=== PATIENT | female | born 1970 | race Caucasian/White ===

== ENCOUNTER 2016-12-09 14:49 | Inpatient (IN) | payer BC ==
--- NOTE | 2016-12-09 14:59 | ER Document Report ---
Addendum entered and electronically signed by KAI QUIJANO NP 12/09/16 15:02 : ED Medical Screen (RME) - General Chief Complaint: Leg Pain Stated Complaint: RIGHT LEG/FOOT PAIN Mode of Arrival: Wheelchair Information source: Patient Notes: I have greeted and performed a rapid initial assessment of this patient. A comprehensive ED assessment and evaluation of the patient, analysis of test results and completion of the medical decision making process will be conducted by additional ED providers. TRAVEL OUTSIDE OF THE [place] IN LAST 30 DAYS: No COUNTRY TRAVELED TO/FROM: [place] - Related Data Allergies/Adverse Reactions: No Known Allergies Allergy (Verified 12/09/16 15:00) Original Note: ED Medical Screen (RME) - General Stated Complaint: RIGHT LEG/FOOT PAIN Notes: pt presents with c/o right foot/lower leg pain. Reports sent over by her pcp. Reports pain and erythema started one week ago, denies injury. has been placed on keflex by [facility] last for cellullitis. TRAVEL OUTSIDE OF THE [place] IN LAST 30 DAYS: No COUNTRY TRAVELED TO/FROM: [place] - Related Data Allergies/Adverse Reactions: No Known Allergies Allergy (Verified 09/19/15 00:55) Past Medical History - Past Medical History Cardiac Medical History: Reports: Hx Hypertension - on meds Denies: Hx Coronary Artery Disease, Hx Heart Attack Pulmonary Medical History: Denies: Hx Asthma, Hx Bronchitis, Hx COPD, Hx Pneumonia Neurological Medical History: Denies: Hx Cerebrovascular Accident, Hx Seizures Endocrine Medical History: Reports: Hx Diabetes Mellitus Type 1, Hx Diabetes Mellitus Type 2 Musculoskeltal Medical History: Denies Hx Arthritis Psychiatric Medical History: Reports: Hx Depression - anxiety Past Surgical History: Reports: Hx Section - x3, Hx Cholecystectomy, Hx Tubal Ligation - Immunizations Hx Diphtheria, Pertussis, Tetanus Vaccination: Yes
[2016-12-09 15:37] LABS: ABSOLUTE BASOPHILS # (AUTO) 0.1 10^3/uL (0.0-0.2); ABSOLUTE EOSINOPHILS # (AUTO) 0.5 10^3/uL (0.0-0.6); ABSOLUTE LYMPHOCYTES (AUTO) 2.7 10^3/uL (0.5-4.7); ABSOLUTE MONOCYTES (AUTO) 0.6 10^3/uL (0.1-1.4); ABSOLUTE NEUT (AUTO) 7.3 10^3/uL (1.7-8.2); BASOPHILS % (AUTO) 0.6 % (0-2); EOSINOPHILS % (AUTO) 4.8 % (0-6); HEMATOCRIT 44.2 % (36.0-47.0); HEMOGLOBIN 13.6 g/dL (12.0-15.5); HGB HCT DIFFERENCE -3.4; LYMPHOCYTES % (AUTO) 24.2 % (13-45); MEAN CORPUSCULAR HEMOGLOBIN 26.3 pg (27.0-33.4); MEAN CORPUSCULAR HGB CONC 30.8 g/dL (32.0-36.0); MEAN CORPUSCULAR VOLUME 85 fl (80-97); MONOCYTES % (AUTO) 5.3 % (3-13); RED BLOOD COUNT 5.18 10^6/uL (3.72-5.28); RED CELL DISTRIBUTION WIDTH 16.9 % (11.5-14.0); SEGMENTED NEUTROPHILS % (AUTO) 65.1 % (42-78); WHITE BLOOD COUNT 11.2 10^3/uL (4.0-10.5)
[2016-12-09 15:59] LABS: ALANINE AMINOTRANSFERASE 28 U/L (9-52); ALBUMIN 4.3 g/dL (3.5-5.0); ALKALINE PHOSPHATASE 76 U/L (38-126); ANION GAP 16 (5-19); ASPARTATE AMINO TRANSFERASE 22 U/L (14-36); BILIRUBIN,TOTAL 0.4 mg/dL (0.2-1.3); BLOOD UREA NITROGEN 12 mg/dL (7-20); CALCIUM 9.8 mg/dL (8.4-10.2); CARBON DIOXIDE 24 mmol/L (22-30); CHLORIDE 100 mmol/L (98-107); CREATININE RESULT 0.72 mg/dL (0.52-1.25); GLUCOSE 181 mg/dL (75-110); POTASSIUM 5.4 mmol/L (3.6-5.0); SODIUM 139.5 mmol/L (137-145); TOTAL PROTEIN 7.5 g/dL (6.3-8.2)
[2016-12-09] MEDS ORDERED: CLINDAMYCIN 600 MG/D5W RTU 50 ML IV ONE (16:40)
--- NOTE | 2016-12-09 16:46 | ER Document Report ---
ED Extremity Problem, Lower - General Chief Complaint: Leg Pain Stated Complaint: RIGHT LEG/FOOT PAIN Mode of Arrival: Wheelchair Information source: Patient, Relative TRAVEL OUTSIDE OF THE [place] IN LAST 30 DAYS: No COUNTRY TRAVELED TO/FROM: [facility] Patient complains to provider of: Pain Location: Ankle, Leg Occurred: Last week Onset/Duration: Gradual Quality of pain: Burning Severity: Moderate Context: Other - RECALLS NO INJURY, NO OPEN WOUNDS Recent injury: No Associated symptoms: Chills, Other - AMBULATION PAINFUL. denies: Fever, Sweaty , Unable to bear weight Exacerbated by: Movement, Walking Relieved by: Rest Notes: Patient was begun on cephalexin 8 days ago by her primary care provider. The redness in the leg improved, there was more modest improvement in the amount of pain. She returned to work yesterday, saw her primary care provider today with complaints of increasing pain. PCP referred her to the emergency department for further evaluation. - Related Data Allergies/Adverse Reactions: No Known Allergies Allergy (Verified 12/09/16 15:00) Past Medical History - General Information source: Patient - Social History Smoking Status: Current Every Day Smoker Chew tobacco use (# tins/day): No Frequency of alcohol use: Rare Drug Abuse: None Lives with: Spouse/Significant other Family History: Reviewed & Not Pertinent Patient has suicidal ideation: No Patient has homicidal ideation: No - Past Medical History Cardiac Medical History: Reports: Hx Hypertension - on meds Denies: Hx Coronary Artery Disease, Hx Heart Attack Pulmonary Medical History: Denies: Hx Asthma, Hx Bronchitis, Hx COPD, Hx Pneumonia Neurological Medical History: Denies: Hx Cerebrovascular Accident, Hx Seizures Endocrine Medical History: Reports: Hx Diabetes Mellitus Type 1, Hx Diabetes Mellitus Type 2 Renal/ Medical History: Denies: Hx Peritoneal Dialysis Malignancy Medical History: Reports: None GI Medical History: Reports: None Musculoskeltal Medical History: Reports None, Denies Hx Arthritis Psychiatric Medical History: Reports: Hx Depression - anxiety Past Surgical History: Reports: Hx Section - x3, Hx Cholecystectomy, Hx Tubal Ligation - Immunizations Hx Diphtheria, Pertussis, Tetanus Vaccination: Yes Review of Systems - Review of Systems Constitutional: See HPI EENT: No symptoms reported Cardiovascular: No symptoms reported Respiratory: No symptoms reported Gastrointestinal: No symptoms reported Genitourinary: No symptoms reported Female Genitourinary: denies: Musculoskeletal: No symptoms reported Skin: See HPI Neurological/Psychological: No symptoms reported Physical Exam - Vital signs Interpretation: Hypertensive - General General appearance: Appears well, Alert In distress: None - HEENT Head: Normocephalic Eyes: Normal Conjunctiva: Normal Ears: Normal Nasal: Normal Mouth/Lips: Normal Mucous membranes: Normal Neck: Normal - Respiratory Respiratory status: No respiratory distress - Cardiovascular Rhythm: Regular Pulses: Normal: Dorsalis pedis Normal capillary refill: Yes - Abdominal Inspection: Normal Distension: No distension - Extremities General upper extremity: Normal inspection General lower extremity: No: Normal inspection - R. ANKLE (SEE BELOW) Calf: Tender - MODERATE, DISTAL RIGHT PRE-TIBIAL. MINIMAL SWELLING, NO CREPITANCE Ankle: Tender - OVER JOINT SPACE, Other - NO EFFUSION Foot: Nontender - Neurological Neuro grossly intact: Yes Cognition: Normal Orientation: AAOx4 - Psychological Associated symptoms: Normal affect, Normal mood - Skin Skin Temperature: Warm Skin Moisture: Dry Skin Color: Normal Skin Turgor: Elastic Skin irregularity: Erythema - MILD, RIGHT DISTAL PRE-TIBIAL Course - Re-evaluation Re-evalutation: 12/09/16 19:12 Patient reports minimal improvement in symptoms. Still intense pain with any movement of the ankle or with attempted ambulation. - Laboratory Result Diagrams: 12/09/16 15:10 12/09/16 15:10 Laboratory results interpreted by me: 12/09/16 12/09/16 15:10 15:10 WBC 11.2 H MCH 26.3 L MCHC 30.8 L RDW 16.9 H Potassium 5.4 H Glucose 181 H - Consults DR. NESS Time consulted: 20:02 Consulted provider: will come to ER Discharge - Discharge Clinical Impression: Cellulitis of right lower extremity Controlled type 2 diabetes mellitus Qualifiers: Diabetes mellitus complication status: without complication Diabetes mellitus custodial insulin use: without dedicated intermodal truck driver use Qualified Code(s): E11.9 - Type 2 diabetes mellitus without complications Condition: Good Disposition: ADMITTED INPATIENT Admitting Provider: Hospitalist Unit Admitted: Telemetry
[2016-12-09] MEDS ORDERED: ONDANSETRON HCL INJ/PF 4 MG/2 ML SDV IV ONE (18:59)
[2016-12-09] MEDS ORDERED: HYDROMORPHONE HCL INJ/PF 2 MG/ML AMPULE IV ONE (18:59)
[2016-12-09] MEDS ORDERED: DEXTROSE 50%-WATER 25 GM/50 ML DISP.SYRIN IV PRN ×2 (21:50)
[2016-12-09] MEDS ORDERED: DEXTROSE 40% GEL 15 GM TUBE PO PRN ×2 (21:50)
[2016-12-09] MEDS ORDERED: GLUCAGON,HUMAN RECOMB 1 MG INJ IM PRN (21:50)
[2016-12-09] MEDS ORDERED: NICOTINE 14 MG/24 HR PATCH.TD24 TD PRN (21:52)
[2016-12-09] MEDS ORDERED: MAG HYDROX/AL HYDROX/SIMETH SUSP 30 ML UDCUP PO PRN (21:54)
[2016-12-09] MEDS ORDERED: MAGNESIUM HYDROXIDE SUSP 30 ML UDCUP PO PRN (21:54)
[2016-12-09] MEDS ORDERED: CEFAZOLIN 1 GM/D5W RTU 1 GM/50 ML RTUPB IV ONE (22:00)
[2016-12-09] MEDS ORDERED: (PENDING PHARMACY ID) (Lisinopril [Prinivil] 20 MG) PO SCH (22:00)
--- NOTE | 2016-12-09 22:31 | PDOC H&P ---
History of Present Illness Admission Date/PCP: 12/09/16 20:24 JOEL WOODY PA-C, [facility] Patient complains of: right leg infection/pain History of Present Illness: DAV RODRIGES is a 46 year old obese female with underlying type II diabetes mellitus, chronic tobacco dependency, hypertension, and hyperlipidemia , with patient refusing to take pravastatin, who presents to the emergency room for evaluation of above complaints. Patient has been discussed with emergency room physician who evaluated the patient. Patient describes the onset of a red tender area in the lower medial aspect of her right lower leg approximately 2 weeks ago. Has been on Keflex 500 4 times a day for the past 8 days. The redness has decreased a good bit, but the pain actually has slowly worsened, in particular over the last 24 hours or so. Combination throbbing and sharp pain, worse with ambulation or contact with the area Positive shaking chills. No nausea vomiting, or diarrhea. No prior such episodes. Denies any trauma to this site. No discharge. No history of MRSA infection. Was seen in her primary care provider's office today and instructed to come to the emergency room for further evaluation and treatment. Laboratory results are listed in Screenie and are reviewed. X-ray summary results are listed below, with full report(s) reviewed. . Social history/personal habits: . Has children. Works in medical billing. Half-pack of cigarettes per day. Rare alcohol. No illicit drug use. Allergies/adverse reactions NKDA. Home medications are reviewed by discussion with patient and are to be reconciled by nursing staff in [facility]. Home medications initially autopopulated into [facility] may not accurately reflect patient's true medications, dosages, and/or frequencies. Refuses to take pravastatin. Normally takes doxycycline 100 mg a day year round for rosacea; this has been on hold since she's been taking the Keflex. REVIEW OF SYSTEMS: Constitutional: See history and present illness. Eyes: Wears glasses. ENT: No swallowing problems or complaints. No hearing problems or complaints. Pulmonary: No current complaints. Cardiovascular: No current complaints, including chest pain. Gastrointestinal: No current complaints, including nausea or vomiting. Skin: See history and present illness. Hematologic: No unusual easy bruising or bleeding. Neurologic: No current complaints, including numbness or tingling. Musculoskeletal: No current complaints, including painful joints. Psychiatric: No current complaints, including anxiety or depression. Endocrine: No current complaints, including polyuria. Genitourinary: No current complaints, including dysuria. PHYSICAL EXAMINATION: 5 feet 4 inches tall. 108.9 kg. BMI 41.2 kg/m. Blood pressure 132/84. Pulse 67 and regular. 97% saturation on room air. Respirations are 16 and unlabored. Temperature is not recorded on the chart. Morbidly obese otherwise well-developed female appearing approximately her stated age. Pleasant awake alert and cooperative. No obvious distress other than perhaps mildly anxious. Female emergency room nurse Taya is present. Skin is warm and dry. No grossly obvious evidence of rash in areas of skin examined. No subcutaneous nodules palpated. See comments under "extremities" below. ENT: Hearing grossly normal to normal conversation. Tongue midline on protrusion pink and slightly tacky Eyes: No scleral icterus. Pupils equal and reactive to light at 4 mm. [place] conjunctivae. Neck is supple and nontender to gentle active range of motion and palpation. Midline trachea. No palpable thyroid nodule mass enlargement or tenderness. Lymphatic: No palpable cervical or clavicular nodes. Neck and lymphatic exams limited by patient body habitus. Psychiatric: Reasonable insight into acute and chronic medical issues. Oriented to time location and why here. Lungs: Auscultation reveals clear and equal breath sounds bilaterally. No use of accessory respiratory muscles. Cardiovascular: Heart regular rate and rhythm, without gallop murmur or rub. No carotid or abdominal aortic bruits. No ankle or pedal edema. Faintly palpable dorsalis pedis pulses. Abdomen:soft, obese, nontender with positive bowel sounds. Unable to adequately evaluate abdomen for masses or organomegaly due to Body habitus Extremities: Feet are warm and dry. No calf tenderness to compression. No grossly obvious visual evidence of calf swelling. Gentle manipulation of lower extremities fails to reveal any obvious evidence of injury or instability to knees hips or ankles. Examination the right lower extremity reveals an area approximately 12 x 10 cm in the medial aspect of the right lower leg, just above the ankle. There is faint erythema in an irregular bordered configuration and mild tenderness. No crepitus fluctuance or expressible discharge. Neurologic: Moves upper extremities grossly normally. Patellar reflexes absent. Absent Babinski. Light touch is intact at feet. Dorsiflexion and plantarflexion of feet 5 / 5 and symmetric. Past Medical History Cardiac Medical History: Reports: Hyperlipidema - Refuses to take pravastatin., Hypertension - on meds Denies: Congestive Heart Failure, Coronary Artery Disease, DVT, Myocardial Infarction, Pulmonary Embolism Pulmonary Medical History: Denies: Asthma, Bronchitis, Chronic Obstructive Pulmonary Disease (COPD), Pneumonia EENT Medical History: Reports: Eyes - Wears glasses. Denies: Ears, Throat Neurological Medical History: Denies: Hemorrhagic CVA, Ischemic CVA, Seizures Endocrine Medical History: Reports: Diabetes Mellitus Type 2 Denies: Hyperthyroidism, Hypothyroidism Renal/ Medical History: Reports: Other - On oxybutynin due to prior surgical injury to her bladder. Malignancy Medical History: Reports: None GI Medical History: Reports: None Denies: Cirrhosis, Gastroesophageal Reflux Disease, Hepatitis, Peptic Ulcer Disease Musculoskeltal Medical History: Reports: None Denies: Arthritis Skin Medical History: Reports: Other - Rosacea Psychiatric Medical History: Reports: Tobacco Dependency Denies: Alcohol Dependency, Depression, General Anxiety Disorder, Substance Abuse Hematology: Reports: Anemia - hx of Infectious Medical History: Denies: Hepatitis B, Hepatitis C, Methicillin-Resistant Staph Aureus Past Surgical History Past Surgical History: Reports: Section - x3, Cholecystectomy, Tubal Ligation Social History Information Source: Patient, Emergency Med Personnel, [facility] Records Lives with: Spouse/Significant other Smoking Status: Current Every Day Smoker Frequency of Alcohol Use: Rare Drugs: None - Advance Directive Resuscitation Status: Full Code Surrogate healthcare decision maker:: Family History Family History: Reviewed & Not Pertinent Parental Family History Reviewed: Yes Children Family History Reviewed: Yes Sibling(s) Family History Reviewed.: Yes Medication/Allergy Home Medications: Lisinopril [Prinivil] 20 mg PO DAILY 12/09/16 Metformin HCl [Metformin HCl ER] 1,000 mg PO BID 12/09/16 Oxybutynin Chloride [Ditropan Xl] 10 mg PO DAILY 12/09/16 Aspirin [Aspirin 81 mg Chewable Tablet] 162 mg PO DAILY #1 pkg 12/11/16 Cephalexin Monohydrate [Keflex 500 mg Capsule] 500 mg PO Q8 #30 capsule Allergies/Adverse Reactions: No Known Allergies Allergy (Verified 12/09/16 15:00) Results Impressions: Venous Doppler Study 12/09/16 19:01 IMPRESSION: NO EVIDENCE OF DVT OR SVT IN THE RIGHT LEG. Tibia/Fibula X-Ray 12/09/16 19:13 IMPRESSION: NO RADIOGRAPHIC EVIDENCE OF ACUTE INJURY. Assessment & Plan - Diagnosis (1) Cellulitis of leg, right Is this a current diagnosis for this admission?: YesPlan: Intravenous Ancef. Will forego vancomycin at this point in time. Will keep bed at 20 Trendelenburg. Bed rest other than meals and bathroom. I have strongly encouraged patient to be careful getting out of bed , to avoid a fall with injury. Knee high SCDs for DVT prophylaxis, left lower extremity only, along with subcutaneous Lovenox . Impression and plans were discussed with patient, who concurs. Time spent in evaluation and management of patient: 62 minutes. (2) Hyperkalemia Is this a current diagnosis for this admission?: YesPlan: Follow-up Chem-7. (3) Diabetes mellitus type 2 in obese Is this a current diagnosis for this admission?: YesPlan: Cardiac diabetic diet. Accu-Cheks with appropriate sliding scale. We'll hold metformin for the present time in case intravenous contrast study required. (4) HTN (hypertension) Qualifiers: Hypertension type: essential hypertension Qualified Code(s): I10 - Essential (primary) hypertension Is this a current diagnosis for this admission?: YesPlan: Resume home medications as appropriate once these have been reviewed. (5) Hyperlipidemia Qualifiers: Hyperlipidemia type: unspecified Qualified Code(s): E78.5 - Hyperlipidemia, unspecified Is this a current diagnosis for this admission?: YesPlan: With patient off medication for same, will check a lipid panel. (6) Tobacco dependency Is this a current diagnosis for this admission?: YesPlan: When necessary nicotine patch. - Inpatient Certification Based on my medical assessment, after consideration of the patient's comorbidities, presenting symptoms, or acuity I expect that the services needed warrant INPATIENT care.: Yes I certify that my determination is in accordance with my understanding of Medicare's requirements for reasonable and necessary INPATIENT services [42 CFR 412.3e].: Yes Medical Necessity: Failure to Improve With Outpatient Therapy, Need For Continuous Telemetry Monitoring, Need for IV Antibiotics, Risk of Complication if Not Cared For in Hospital Post Hospital Care: D/C or Transfer Summary
[2016-12-09] MEDS ORDERED: LISINOPRIL 10 MG TABLET PO ONE (23:00)
[2016-12-09 23:01] LABS: ANION GAP 13 (5-19); BLOOD UREA NITROGEN 11 mg/dL (7-20); CALCIUM 9.5 mg/dL (8.4-10.2); CARBON DIOXIDE 24 mmol/L (22-30); CHLORIDE 100 mmol/L (98-107); CREATININE RESULT 0.69 mg/dL (0.52-1.25); GLUCOSE 204 mg/dL (75-110); POTASSIUM 4.7 mmol/L (3.6-5.0); SODIUM 136.5 mmol/L (137-145)
[2016-12-10] MEDS: OXYCODONE HCL IR 5 MG TABLET PO PRN ×3 (01:05→14:52)
[2016-12-10] MEDS ORDERED: CEFAZOLIN 1 GM/D5W RTU 1 GM/50 ML RTUPB IV SCH (03:00)
[2016-12-10] MEDS: ACETAMINOPHEN 325 MG TABLET PO PRN ×2 (05:25→11:32)
[2016-12-10] MEDS: ENOXAPARIN SODIUM INJ 40 MG/0.4 ML DISP.SYRIN SUBCUT SCH (08:49)
[2016-12-10] MEDS: INSULIN LISPRO 100 UNIT/ML 3 ML VIAL SUBCUT PRN ×3 (08:49→16:54)
[2016-12-10 08:50] LABS: ABSOLUTE EOSINOPHILS # (AUTO) 0.6 10^3/uL (0.0-0.6); ABSOLUTE LYMPHOCYTES (AUTO) 2.4 10^3/uL (0.5-4.7); ABSOLUTE MONOCYTES (AUTO) 0.6 10^3/uL (0.1-1.4); ABSOLUTE NEUT (AUTO) 6.4 10^3/uL (1.7-8.2); BASOPHILS % (AUTO) 0.4 % (0-2); EOSINOPHILS % (AUTO) 5.8 % (0-6); HEMATOCRIT 40.7 % (36.0-47.0); HEMOGLOBIN 12.9 g/dL (12.0-15.5); LYMPHOCYTES % (AUTO) 24.1 % (13-45); MEAN CORPUSCULAR HGB CONC 31.7 g/dL (32.0-36.0); MEAN CORPUSCULAR VOLUME 85 fl (80-97); MONOCYTES % (AUTO) 5.7 % (3-13); RED BLOOD COUNT 4.77 10^6/uL (3.72-5.28); RED CELL DISTRIBUTION WIDTH 16.1 % (11.5-14.0)
[2016-12-10 09:04] LABS: CHOLESTEROL 204.69 mg/dL (0-200); Direct HDL 37 mg/dL (>40); TRIGLYCERIDES 154 mg/dL (<150)
[2016-12-10 09:15] LABS: DIRECT LDL 175 mg/dL (<100)
[2016-12-10 09:25] LABS: VLDL CHOLESTEROL 30.8 mg/dL (10-31)
[2016-12-10] MEDS: CEFAZOLIN SODIUM 1 GM in DEXTROSE 5%-WATER 50 ML IV SCH ×3 (10:09→22:48)
[2016-12-10] MEDS: DOCUSATE SODIUM 100 MG CAPSULE PO SCH ×2 (10:10→18:01)
--- NOTE | 2016-12-10 10:35 | PDOC PROGRESS REPORT ---
Subjective Progress Note for:: 12/10/16 Subjective:: DAV RODRIGES is a 46 year old obese female with underlying type II diabetes mellitus, chronic tobacco dependency, hypertension, and hyperlipidemia , with patient refusing to take pravastatin, who presents to the emergency room for evaluation of pain, swelling and redness of the right lower extremity for the last 2 weeks.. Patient describes the onset of a red tender area in the lower medial aspect of her right lower leg approximately 2 weeks ago. Has been on Keflex 500 4 times a day for the past 8 days. The redness has decreased a good bit, but the pain actually has slowly worsened, in particular over the last 24 hours or so. Combination throbbing and sharp pain, worse with ambulation or contact with the area Positive shaking chills. No nausea vomiting, or diarrhea. She notes that when she is off her feet the pain and swelling decrease however when she is back at work sitting at her desk for long periods or walking the swelling increases and with that the redness and pain. No prior such episodes. Denies any trauma to this site. No discharge. No history of MRSA infection. Was seen in her primary care provider's office and instructed to come to the emergency room for further evaluation and treatment. She was admitted to the hospital and started on IV Ancef, is once again largely at rest and as a result the swelling has gone down and with that the redness almost overnight. She cannot localize the pain to the bone or soft tissues. ROS: A total of 10 systems are reviewed with the patient pertinent positives and negatives are noted above the remaining systems are negative. Physical Exam Vital Signs: Temp Pulse Resp BP Pulse Ox 97.7 F 62 16 109/64 98 12/10/16 07:49 12/10/16 07:49 12/10/16 07:49 12/10/16 07:49 12/10/16 07:49 Intake & Output 12/09/16 12/10/16 12/11/16 06:59 06:59 06:59 Intake Total 410 Balance 410 Weight 101.2 kg General appearance: PRESENT: no acute distress, well-developed, well-nourished Head exam: PRESENT: atraumatic, normocephalic Eye exam: PRESENT: conjunctiva pink, EOMI, PERRLA. ABSENT: scleral icterus Mouth exam: PRESENT: moist, tongue midline Neck exam: ABSENT: JVD, tracheal deviation Respiratory exam: PRESENT: clear to auscultation tomy. ABSENT: rales, rhonchi, wheezes Cardiovascular exam: PRESENT: RRR. ABSENT: diastolic murmur, rubs, systolic murmur Pulses: PRESENT: normal femoral pulses, normal dorsalis pedis pul Vascular exam: PRESENT: normal capillary refill GI/Abdominal exam: PRESENT: normal bowel sounds, soft. ABSENT: distended, guarding, rebound, tenderness Rectal exam: PRESENT: deferred Extremities exam: PRESENT: full ROM, pedal edema - Asymmetric swelling right greater than left, tenderness - Tenderness over palpation of the distal third of the tibial shaft, ankle joint space, ankle mortise. ABSENT: calf tenderness , clubbing Neurological exam: PRESENT: alert, awake, oriented to person, oriented to place , oriented to time, oriented to situation. ABSENT: motor sensory deficit Psychiatric exam: PRESENT: appropriate affect, normal mood Skin exam: PRESENT: dry, intact, warm. ABSENT: cyanosis, rash - Erythema resolved Results Laboratory Results: 12/10/16 08:31 12/09/16 22:16 12/09/16 12/10/16 12/10/16 22:16 08:31 08:31 WBC 10.0 RBC 4.77 Hgb 12.9 Hct 40.7 MCV 85 MCH 27.0 MCHC 31.7 L RDW 16.1 H Plt Count 303 Seg Neutrophils % 64.0 Lymphocytes % 24.1 Monocytes % 5.7 Eosinophils % 5.8 Basophils % 0.4 Absolute Neutrophils 6.4 Absolute Lymphocytes 2.4 Absolute Monocytes 0.6 Absolute Eosinophils 0.6 Absolute Basophils 0.0 Sodium 136.5 L Potassium 4.7 Chloride 100 Carbon Dioxide 24 Anion Gap 13 BUN 11 Creatinine 0.69 Est GFR ( Amer) > 60 Est GFR (Non-Af Amer) > 60 Glucose 204 H Calcium 9.5 Triglycerides 154 H Cholesterol 204.69 H LDL Cholesterol Direct 175 H VLDL Cholesterol 30.8 HDL Cholesterol 37 L Impressions: Venous Doppler Study 12/09/16 19:01 IMPRESSION: NO EVIDENCE OF DVT OR SVT IN THE RIGHT LEG. Tibia/Fibula X-Ray 12/09/16 19:13 IMPRESSION: NO RADIOGRAPHIC EVIDENCE OF ACUTE INJURY. Assessment & Plan - Diagnosis (1) Cellulitis of leg, right Is this a current diagnosis for this admission?: YesPlan: Unclear etiology. History and physical exam findings worrisome for deep tissue pathology. After discussion with the patient with elected to perform MRI with and without contrast to better evaluate. Continue Ancef for now. Repeat CRP, CBC in the morning. (2) Diabetes type 2, controlled Qualifiers: Diabetes mellitus complication status: without complication Diabetes mellitus mcc insulin use: without petroleum terminal plant operator use Qualified Code(s): E11.9 - Type 2 diabetes mellitus without complications Is this a current diagnosis for this admission?: YesPlan: Continue sliding scale. Diabetes places her at risk for cellulitis and soft tissue infections due to relative immunosuppression. (3) HTN (hypertension) Qualifiers: Hypertension type: essential hypertension Qualified Code(s): I10 - Essential (primary) hypertension Is this a current diagnosis for this admission?: YesPlan: Continue home regimen, titrate as necessary. (4) Hyperlipidemia Qualifiers: Hyperlipidemia type: unspecified Qualified Code(s): E78.5 - Hyperlipidemia, unspecified Is this a current diagnosis for this admission?: YesPlan: Declines therapy, placing her at risk for vascular disease. - Time Time Spent with patient: 35 or more minutes Anticipated discharge: Home Within: within 48 hours
[2016-12-10] MEDS: OXYBUTYNIN CHLORIDE 5 MG TABLET PO SCH ×2 (10:44→22:48)
[2016-12-10] MEDS ORDERED: LISINOPRIL 10 MG TABLET PO SCH (18:00)
[2016-12-11] MEDS: CEFAZOLIN SODIUM 1 GM in DEXTROSE 5%-WATER 50 ML IV SCH ×2 (04:28→08:13)
[2016-12-11] MEDS: OXYCODONE HCL IR 5 MG TABLET PO PRN (04:32)
[2016-12-11 06:18] LABS: HEMATOCRIT 39.1 % (36.0-47.0); HEMOGLOBIN 12.4 g/dL (12.0-15.5); HGB HCT DIFFERENCE -1.9; MEAN CORPUSCULAR HEMOGLOBIN 26.9 pg (27.0-33.4); MEAN CORPUSCULAR HGB CONC 31.8 g/dL (32.0-36.0); MEAN CORPUSCULAR VOLUME 85 fl (80-97); RED BLOOD COUNT 4.62 10^6/uL (3.72-5.28); RED CELL DISTRIBUTION WIDTH 16.1 % (11.5-14.0); WHITE BLOOD COUNT 9.6 10^3/uL (4.0-10.5)
[2016-12-11 06:40] LABS: PHOSPHORUS 4.6 mg/dL (2.5-4.5)
[2016-12-11 06:46] LABS: C-REACTIVE PROTEIN < 5.0 mg/L (<10.0)
[2016-12-11] MEDS: INSULIN LISPRO 100 UNIT/ML 3 ML VIAL SUBCUT PRN ×2 (08:13→11:26)
[2016-12-11] MEDS: ENOXAPARIN SODIUM INJ 40 MG/0.4 ML DISP.SYRIN SUBCUT SCH (08:13)
[2016-12-11] MEDS: DOCUSATE SODIUM 100 MG CAPSULE PO SCH (10:27)
[2016-12-11] MEDS: OXYBUTYNIN CHLORIDE 5 MG TABLET PO SCH (10:27)
--- NOTE | 2016-12-11 10:39 | PDOC DISCHARGE SUMMARY ---
General - Admit/Disc Date/PCP Admission Date/Primary Care Provider: 12/09/16 21:54 JOEL WOODY PA-C Discharge Date: 12/11/16 - Discharge Diagnosis (1) Thrombophlebitis leg superficial Is this a current diagnosis for this admission?: YesSummary: Finish course of Keflex. Rest ice and elevation for any swelling. Okay to use low-dose ibuprofen or other nonsteroidals of choice for pain. 30 days of aspirin 162 mg daily. Follow-up with primary care provider in one week. (2) Cellulitis of leg, right Is this a current diagnosis for this admission?: YesSummary: Secondary to the above. As above. (3) Diabetes type 2, controlled Is this a current diagnosis for this admission?: Yes (4) HTN (hypertension) Is this a current diagnosis for this admission?: Yes (5) Hyperlipidemia Is this a current diagnosis for this admission?: Yes - Additional Information Resuscitation Status: Full Code Discharge Diet: Diabetic Discharge Activity: Activity As Tolerated Home Medications: Lisinopril [Prinivil] 20 mg PO DAILY 12/09/16 Metformin HCl [Metformin HCl ER] 1,000 mg PO BID 12/09/16 Oxybutynin Chloride [Ditropan Xl] 10 mg PO DAILY 12/09/16 Aspirin [Aspirin 81 mg Chewable Tablet] 162 mg PO DAILY #1 pkg 12/11/16 Cephalexin Monohydrate [Keflex 500 mg Capsule] 500 mg PO Q8 #30 capsule History of Present Illness History of Present Illness: DAV RODRIGES is a 46 year old female with underlying type II diabetes mellitus, chronic tobacco dependency, hypertension, and hyperlipidemia, with patient refusing to take pravastatin, who presents to the emergency room for evaluation of pain, swelling and redness of the right lower extremity for the last 2 weeks.. Patient describes the onset of a red tender area in the lower medial aspect of her right lower leg approximately 2 weeks ago. Has been on Keflex 500 4 times a day for the past 8 days. The redness has decreased a good bit, but the pain actually has slowly worsened, in particular over the last 24 hours or so. Combination throbbing and sharp pain, worse with ambulation or contact with the area Positive shaking chills. No nausea vomiting, or diarrhea. She notes that when she is off her feet the pain and swelling decrease however when she is back at work sitting at her desk for long periods or walking the swelling increases and with that the redness and pain. No prior such episodes. Denies any trauma to this site. No discharge. No history of MRSA infection. Was seen in her primary care provider's office and instructed to come to the emergency room for further evaluation and treatment. She was admitted to the hospital and started on IV Ancef, is once again largely at rest and as a result the swelling has gone down and with that the redness almost overnight. She cannot localize the pain to the bone or soft tissues. The time I saw her her physical exam was relatively unremarkable aside from pain over the pretibial area on the right with some persistent swelling of bilateral lower extremities right greater than left. But the erythema had resolved. MRI of the right lower extremity shows a superficial thrombophlebitis but no evidence of bony or deep tissue involvement. Her C- reactive protein is very reassuring well within normal limits. Her WBCs have returned to normal. With treatment her symptoms have largely resolved. She is hemodynamic was stable for discharge home. She is to start aspirin 162 mg daily, continue Keflex at home until course is complete, rest ice and elevation for any recurrent swelling and follow-up with her primary care provider in one week for further recommendations. She is to return to emergency department or report to urgent care or her primary care provider in fever greater than 102, increased pain or swelling, increased redness or signs and symptoms suggestive of her reaction to the antibiotic which were discussed with her in great detail. All questions were asked and answered to her satisfaction she expresses no concerns about discharge home today. Hospital Course Hospital Course: As above. Physical Exam Vital Signs: Temp Pulse Resp BP Pulse Ox 97.5 F 78 14 121/79 99 12/11/16 08:41 12/11/16 08:41 12/11/16 08:41 12/11/16 08:41 12/11/16 08:41 Intake & Output 12/10/16 12/11/16 12/12/16 06:59 06:59 06:59 Intake Total 410 1979 Balance 410 1979 Weight 101.2 kg 101.2 kg Extremities exam: PRESENT: pedal edema - Trace., other - No erythema, no palpable cords. Mild superficial varicosities noted in the anterior pretibial area on the right.. ABSENT: calf tenderness, tenderness Results Laboratory Results: 12/11/16 05:39 12/09/16 22:16 12/10/16 12/11/16 12/11/16 08:31 05:39 05:39 WBC 9.6 RBC 4.62 Hgb 12.4 Hct 39.1 MCV 85 MCH 26.9 L MCHC 31.8 L RDW 16.1 H Plt Count 287 Phosphorus 4.6 H C-Reactive Protein < 5.0 < 5.0 Impressions: Venous Doppler Study 12/09/16 19:01 IMPRESSION: NO EVIDENCE OF DVT OR SVT IN THE RIGHT LEG. Tibia/Fibula X-Ray 12/09/16 19:13 IMPRESSION: NO RADIOGRAPHIC EVIDENCE OF ACUTE INJURY. Lower Extremity MRI 12/10/16 00:00 IMPRESSION: Superficial thrombophlebitis of a superficial vein in the pretibial fat with mild surrounding pretibial soft tissue inflammation. No deep soft tissue involvement or bony abnormal signal/enhancement worrisome for osteomyelitis Qualifiers [facility] BEING DISCHARGED WITH ANY OF THE FOLLOWING DIAGNOSIS?: No Plan Discharge Plan: Complete a course of antibiotics, NSAID S for pain. Time Spent: Greater than 30 Minutes
[2016-12-11 11:18] VITALS: BP 112/61
== END 2016-12-11 11:55 | disposition home or self-care (01) | DRG 300 ==
LOC: ER 14:49 → EH 20:24 → UNDOADMIN 20:24 → EH 21:54 → 5 12-10 02:30
DX: I80.01 Phlebitis and thrombophlebitis of superficial vessels of right lower extremity (principal); L03.115 Cellulitis of right lower limb; F17.210 Nicotine dependence, cigarettes, uncomplicated; I10 Essential (primary) hypertension; F32.9 Major depressive disorder, single episode, unspecified; F41.9 Anxiety disorder, unspecified; E11.9 Type 2 diabetes mellitus without complications; E78.5 Hyperlipidemia, unspecified; E66.9 Obesity, unspecified; E87.5 Hyperkalemia; Z90.49 Acquired absence of other specified parts of digestive tract; Z98.51 Tubal ligation status; Z79.899 Other long term (current) drug therapy; Z68.38 Body mass index [BMI] 38.0-38.9, adult
CPT/HCPCS: 36415; 80048; 80053; 80061; 82962; 84100; 85025; 85027; 86140; 87040; 93971; 96365; 96375; 99285; A9576; J0690; J1170; J1650; J1815; J2405; J3490